=== PATIENT | male | born 1970 | race Caucasian/White ===

== ENCOUNTER 2023-08-28 06:53 | Day surgery (SDC) | payer BC ==
[~2023-08-28 06:53] MED LIST: Lactated Ringers 1,000 ML IV SCH; Sodium Chloride 0.9% 10 ML Syringe FLUSH PRN; Sodium Chloride 0.9% 10 ML Syringe FLUSH SCH
[2023-08-28] MEDS ORDERED: Lidocaine 1% 4 ML ONE (07:45)
[2023-08-28] MEDS ORDERED: Midazolam 1 MG/ML 2 ML SDV ONE (07:45)
[2023-08-28] MEDS ORDERED: Propofol 200 MG/20 ML SDV ONE (07:45)
[2023-08-28] MEDS ORDERED: fentaNYL 100 MCG/2 ML SDV ONE (07:45)
[2023-08-28] MEDS ORDERED: Lidocaine 1% PF 2 ML SDV ONE (07:45)
== END 2023-08-28 09:00 | disposition home or self-care (01) ==
LOC: JD.SDS 06:53
PROVIDERS: ATTEND Specialist
DX: Z12.11 Encounter for screening for malignant neoplasm of colon (principal); K21.9 Gastro-esophageal reflux disease without esophagitis; J45.909 Unspecified asthma, uncomplicated; Z79.899 Other long term (current) drug therapy
CPT/HCPCS: 45378; J2250; J2704; J3010; J7120; J3490

== ENCOUNTER 2025-01-08 12:30 | Emergency (ER) | payer MEDICAID ==
[2025-01-08] MEDS: LORazepam 1 MG Tab PO ONE (13:31)
[2025-01-08] MEDS: OLANZapine 5 MG Tab PO ONE (13:31)
[2025-01-08] MEDS: droPERidol 2.5 MG/ML SDV IM STA (13:31)
[2025-01-08 13:52] LABS: BASOPHILS ABSOLUTE AUTO 0.1 K/mm3 (0.0-0.2); BASOPHILS PERCENT AUTO 0.7 % (0.0-1.0); EOSINOPHILS ABSOLUTE AUTO 0.3 K/mm3 (0.0-0.4); EOSINOPHILS PERCENT AUTO 3.4 % (0.0-6.0); HEMATOCRIT 41.8 % (42.0-52.0); HEMOGLOBIN 13.7 gm/dl (14.0-18.0); IMMATURE GRAN ABSOLUTE AUTO 0.01 K/mm3 (0.00-0.05); IMMATURE GRAN PERCENT AUTO 0.1 % (0.0-0.4); LYMPHOCYTES ABSOLUTE AUTO 3.3 K/mm3 (1.0-4.8); LYMPHOCYTES PERCENT AUTO 42.7 % (24.0-44.0); MEAN CORPUSCULAR HGB CONC 32.8 g/dl (32.0-36.0); MEAN CORPUSCULAR VOLUME 91.7 fl (83.0-99.0); MEAN PLATELET VOLUME 8.9 fl (9.4-12.4); MONOCYTES ABSOLUTE AUTO 0.5 K/mm3 (0.0-0.8); MONOCYTES PERCENT AUTO 7.1 % (0.0-8.0); NEUTROPHILS ABSOLUTE AUTO 3.5 K/mm3 (1.8-7.7); PLATELET COUNT,PLT 295 K/mm3 (150-400); RED BLOOD CELL COUNT 4.56 M/mm3 (4.52-5.90); WHITE BLOOD CELL COUNT,WBC 7.62 K/mm3 (3.9-11.3)
[2025-01-08 14:17] LABS: A/G RATIO 1.2 (1-2); ALBUMIN 3.6 g/dl (3.4-5.0); ANION GAP 13.5 (5-15); BILIRUBIN TOTAL 0.7 mg/dL (0.2-1.0); BUN/CREATININE RATIO 17.8 (14-18); CALCIUM 9.1 mg/dL (8.5-10.1); CREATININE 0.9 mg/dL (0.7-1.3); EST CRCL DRUG DOSING (CG) 85.69 mL/min; POTASSIUM,K 4.5 mEq/L (3.5-5.1); PROTEIN TOTAL,TP 6.5 g/dl (6.4-8.2)
[2025-01-08 18:42] LABS: BARBITURATE SCREEN,URINE NEGATIVE (CUTOFF=200); BENZODIAZEPINES SCREEN,URINE PRESUMPTIVE POSITIVE (CUTOFF=150); BUPRENORPHINE SCREEN,URINE NEGATIVE (CUTOFF=10); METHADONE SCREEN, URINE NEGATIVE (CUT0FF=200); METHAMPHETAMINES SCREEN, URINE NEGATIVE (CUTOFF=500); OXYCODONE SCREEN,URINE NEGATIVE (CUT0FF=100); THC SCREEN,URINE 20 NG/ML NEGATIVE (CUTOFF=50)
[2025-01-08 19:09] LABS: AMPHETAMINES SCREEN, URINE NEGATIVE (CUTOFF=500)
[2025-01-08 20:40] LABS: APPEARANCE,URINE CLEAR (Clear); BILIRUBIN,URINE NEGATIVE (Negative); COLOR,URINE YELLOW (Yellow); GLUCOSE,URINE NEGATIVE (Negative); KETONES,URINE NEGATIVE (Negative); LEUKOCYTE ESTERASE,URINE NEGATIVE (Negative); NITRITE,URINE NEGATIVE (Negative); OCCULT BLOOD,URINE NEGATIVE (Negative); PROTEIN,URINE NEGATIVE (Negative); UROBILINOGEN,URINE 0.2 (0.2-1.0)
[2025-01-08 20:59] LABS: TSH 0.844 uIU/mL (0.358-3.74)
== END 2025-01-09 00:59 ==
LOC: JD.ED 12:30
DX: F29 Unspecified psychosis not due to a substance or known physiological condition (principal); E66.9 Obesity, unspecified; Z86.16 Personal history of COVID-19; Z68.27 Body mass index [BMI] 27.0-27.9, adult
CPT/HCPCS: 36415; 80053; 80143; 80179; 80306; 80307; 81003; 82550; 84443; 85025; 99285; A9270; J1790

== ENCOUNTER 2025-01-28 10:42 | Emergency (ER) | payer MEDICAID ==
[2025-01-28 11:38] LABS: BASOPHILS ABSOLUTE AUTO 0.1 K/mm3 (0.0-0.2); BASOPHILS PERCENT AUTO 0.7 % (0.0-1.0); EOSINOPHILS ABSOLUTE AUTO 0.2 K/mm3 (0.0-0.4); EOSINOPHILS PERCENT AUTO 1.8 % (0.0-6.0); HEMATOCRIT 43.7 % (42.0-52.0); HEMOGLOBIN 14.6 gm/dl (14.0-18.0); IMMATURE GRAN ABSOLUTE AUTO 0.02 K/mm3 (0.00-0.05); IMMATURE GRAN PERCENT AUTO 0.2 % (0.0-0.4); LYMPHOCYTES ABSOLUTE AUTO 3.6 K/mm3 (1.0-4.8); MEAN CORPUSCULAR HEMOGLOBIN 30.3 pg (28.0-32.0); MEAN CORPUSCULAR HGB CONC 33.4 g/dl (32.0-36.0); MEAN CORPUSCULAR VOLUME 90.7 fl (83.0-99.0); MEAN PLATELET VOLUME 8.7 fl (9.4-12.4); MONOCYTES ABSOLUTE AUTO 0.5 K/mm3 (0.0-0.8); NEUTROPHILS ABSOLUTE AUTO 5.1 K/mm3 (1.8-7.7); NEUTROPHILS PERCENT AUTO 54.3 % (41.0-71.0); PLATELET COUNT,PLT 318 K/mm3 (150-400); RED BLOOD CELL COUNT 4.82 M/mm3 (4.52-5.90); WHITE BLOOD CELL COUNT,WBC 9.41 K/mm3 (3.9-11.3)
[2025-01-28 12:09] LABS: A/G RATIO 1.3 (1-2); ALBUMIN 3.6 g/dl (3.4-5.0); ANION GAP 12.6 (5-15); BILIRUBIN TOTAL 0.9 mg/dL (0.2-1.0); BUN/CREATININE RATIO 21.1 (14-18); CALCIUM 8.9 mg/dL (8.5-10.1); CREATININE 0.9 mg/dL (0.7-1.3); EST CRCL DRUG DOSING (CG) 82.7 mL/min; POTASSIUM,K 4.6 mEq/L (3.5-5.1); PROTEIN TOTAL,TP 6.4 g/dl (6.4-8.2); TSH 1.019 uIU/mL (0.358-3.74)
[2025-01-28 13:27] LABS: BARBITURATE SCREEN,URINE NEGATIVE (CUTOFF=200); BENZODIAZEPINES SCREEN,URINE NEGATIVE (CUTOFF=150); BUPRENORPHINE SCREEN,URINE NEGATIVE (CUTOFF=10); METHADONE SCREEN, URINE NEGATIVE (CUT0FF=200); METHAMPHETAMINES SCREEN, URINE NEGATIVE (CUTOFF=500); OXYCODONE SCREEN,URINE NEGATIVE (CUT0FF=100); THC SCREEN,URINE 20 NG/ML NEGATIVE (CUTOFF=50)
[2025-01-28 13:30] LABS: AMPHETAMINES SCREEN, URINE NEGATIVE (CUTOFF=500)
[2025-01-28] MEDS: LORazepam 1 MG Tab PO ONE (14:01)
[2025-01-28] MEDS: OLANZapine 10 MG Vial IM ONE (14:54)
== END 2025-01-28 17:55 ==
LOC: JD.ED 10:42
DX: F29 Unspecified psychosis not due to a substance or known physiological condition (principal); R44.1 Visual hallucinations; F17.210 Nicotine dependence, cigarettes, uncomplicated
CPT/HCPCS: 36415; 80053; 80143; 80179; 80306; 80307; 84443; 85025; 93005; 96372; 99285; A9270; J2359